=== PATIENT | female | born 1935 | race Caucasian/White ===

== ENCOUNTER 2021-04-05 13:05 | Outpatient (CLI) | payer OTHER, MEDICARE ==
[2021-04-05 13:37] LABS: BASOPHILS # (AUTO) 0.1 K/uL (0.0-0.2); BASOPHILS % (AUTO) 0.9 % (0.0-2.0); EOSINOPHILS # (AUTO) 0.1 K/uL (0.0-0.4); EOSINOPHILS % (AUTO) 0.8 % (0.0-4.0); HEMATOCRIT 42.7 % (36-48); HEMOGLOBIN 14.7 g/dL (12.0-16.0); LYMPHOCYTES # (AUTO) 2.1 K/uL (1.0-5.5); LYMPHOCYTES % (AUTO) 29.2 % (20.5-51.5); MEAN CORPUSCULAR HEMOGLOBIN 31 pg (27-31); MEAN CORPUSCULAR HGB CONC 34 % (32-36); MEAN CORPUSCULAR VOLUME 89 fL (79.0-98.0); MONOCYTES # (AUTO) 0.6 K/uL (0.0-1.0); MONOCYTES % (AUTO) 7.9 % (1.7-9.3); NEUTROPHILS # (AUTO) 4.4 K/uL (1.8-7.7); NEUTROPHILS % (AUTO) 61.2 % (40.0-70.0); PLATELET COUNT (AUTO) 187 K/uL (130-430); WHITE BLOOD COUNT (AUTO) 7.2 K/uL (4.8-10.8)
[2021-04-05 13:49] LABS: ANION GAP 7 (5-15); CALCIUM 9.3 mg/dL (8.4-11.0); CHLORIDE 104 mmol/L (98-107); CREATININE 0.78 mg/dL (0.55-1.30); GLUCOSE 106 mg/dL (70-99); POTASSIUM 4.7 mmol/L (3.5-5.1); SODIUM SERUM 140 mmol/L (136-145); UREA NITROGEN, BLOOD 17 mg/dL (8-21)
== END 2021-04-05 20:10 | disposition home or self-care (01) ==
LOC: SCA 13:05
PROVIDERS: ATTEND Internal Medicine
DX: Z01.818 Encounter for other preprocedural examination (principal); H26.9 Unspecified cataract; I10 Essential (primary) hypertension
CPT/HCPCS: 36415; 80048; 85025